=== PATIENT | female | born 1945 | race Hispanic/Latino ===

== ENCOUNTER 2016-08-10 22:30 | Emergency (ER) | payer MEDICARE ==
[2016-08-10 22:30] VITALS: BMI 28.9
[2016-08-10 22:49] VITALS: PULSE 74; RESP 20
--- NOTE | 2016-08-10 22:51 | C.PDOC ---
History Of Present Illness Patient is a 71 year old female who was brought into the ER by [facility] after patient twisted her right ankle. Patient states she was waiting for someone to assist her to the bathroom due to her left hip problems, but became restless and decided to go on her own when she slipped and twisted her right ankle. An x-ray was done [employer] and was positive for a right ankle fracture. Patient denies weakness, numbness, other injuries or trauma. Time Seen by Provider: 08/10/16 22:40 Chief Complaint (Nursing): Lower Extremity Problem/Injury History Per: Patient History/Exam Limitations: no limitations Onset/Duration Of Symptoms: Hrs Current Symptoms Are (Timing): Still Present Recent travel outside of the [place]: No Additional History Per: Patient, Longterm - Ankle/Foot Description Of Injury: Twisted Past Medical History Reviewed: Historical Data, Nursing Documentation, Vital Signs Vital Signs: Last Vital Signs Temp 98.3 F 08/10/16 22:37 Pulse 74 08/10/16 22:37 Resp 20 08/10/16 22:37 BP 157/89 H 08/10/16 22:37 Pulse Ox 99 08/10/16 22:37 - Medical History PMH: Asthma, HTN, Hypercholesterolemia, Hyperlipidemia, Hypothyroidism, Malignancy (breast ca mets) - [facility] Procedures COLONOSCOPY (07/16/14) DRAINAGE OF LEFT PLEURAL CAVITY, PERC APPROACH, DIAGN (12/13/15) ESOPHAGOGASTRODUODENOSCOPY [EGD] W/CLOSED BIOPSY (07/16/14) LAPAROSCOPIC CHOLECYSTECTOMY (07/16/14) RIGID PROCTOSIGMOIDOSCOPY (07/16/14) Family History: States: Unknown Family Hx - Social History Hx Tobacco Use: No Hx Alcohol Use: No Hx Substance Use: No - Immunization History Hx Tetanus Toxoid Vaccination: Yes Hx Influenza Vaccination: Yes Hx Pneumococcal Vaccination: Yes Review Of Systems Constitutional: Negative for: Fever, Chills, Weakness Musculoskeletal: Positive for: Foot Pain (Right ankle) Neurological: Negative for: Weakness, Numbness Physical Exam - Physical Exam Appears: Well, Non-toxic Skin: Normal Color, Warm, Dry, No Ecchymosis Head: Atraumatic, Normacephalic Oral Mucosa: Moist Extremity: Normal ROM, Tenderness (Right ankle over medial malleolus), Swelling (Right ankle), Other (Right knee sore. Left leg shortened and externally rotated.) Pulses: Left Femoral: Normal, Right Femoral: Normal, Left Dorsalis Pedis: Normal , Right Dorsalis Pedis: Normal Neurological/Psych: Oriented x3, Normal Speech, Normal Cognition ED Course And Treatment - Other Rad Right ankle X-Ray: Interpreted by Me Interpretation: Avulsion fracture off medial malleolus. Diffuse degenerative disease. soft tissue swelling right knee X-Ray: Interpreted by Me Interpretation: No evidence of fracture or dislocation. No effusion Pelvis X-Ray: Interpreted by Me Interpretation: Erosion of left femoral head. History of metastatic cancer Progress Note: Patient placed in an air cast to immobilize right ankle. Medical Decision Making Medical Decision Making: Plan: * X-ray of right hip, knee, and ankle Disposition - Disposition Disposition: TRANSF TO SNF Disposition Time: 23:54 Condition: IMPROVED Additional Instructions: Continue pain medications as prescribed. Keep the ankle iced and elevated. Wear the air cast for support for 6-8 weeks. Instructions: Ankle Fracture (ED) - Clinical Impression Clinical Impression: Closed avulsion fracture of medial malleolus - Scribe Statement The provider has reviewed the documentation as recorded by the Scribkeke Sandoval All medical record entries made by the Marisolibkeke were at my direction and personally dictated by me. I have reviewed the chart and agree that the record accurately reflects my personal performance of the history, physical exam, medical decision making, and the department course for this patient. I have also personally directed, reviewed, and agree with the discharge instructions and disposition.
[2016-08-11 00:45] VITALS: BP 132/78; TEMP 98; O2SAT 98
--- NOTE | 2016-08-11 08:20 | RAD ---
PROCEDURE: Right Knee Radiographs. HISTORY: injury COMPARISON: None. FINDINGS: BONES: No fracture. Tibial spine and posterior and anterior superior spurring present. Patellofemoral and medial femoral tibial joint space narrowing JOINTS: osteoarthritis. JOINT EFFUSION: None. OTHER FINDINGS: Quadriceps insertional enthesophyte IMPRESSION: No fracture or dislocation. Osteoarthrosis
--- NOTE | 2016-08-11 08:25 | RAD ---
PROCEDURE: Radiographs of the pelvis. HISTORY: injury COMPARISON: CT abdomen and pelvis 12/12/2015 report FINDINGS: BONES: Osseous hypertrophic changes -each lateral iliac bone and along each trochanter Deformity loss/flattening and fragmentation left femoral head -advanced avascular necrosis and osteoarthrosis inferred. Right osteoarthrosis JOINTS: Sacroiliac Joints: Left sacroiliac sclerosis possible superior right sacral sided sclerosis Pubic Symphysis: Unremarkable. Left L5-S1 ossific hypertrophic facet arthrosis Additional findings in bone section OTHER FINDINGS: None. IMPRESSION: Deformity/flattening/ osseous loss -left femoral head with fragmentation -left femoral head avascular necrosis inferred - findings reported 2015 Multifocal osteoarthrosis No interval obvious fracture appreciated
--- NOTE | 2016-08-11 08:37 | RAD ---
PROCEDURE: Right Ankle Radiographs. HISTORY: injury COMPARISON: None FINDINGS: BONES: Inferior medial malleolar osseous avulsion. Inferior posterior calcaneal spurring. Achilles tendon insertional enthesophyte noted. JOINTS: osteoarthritis 1st metatarsal-phalangeal joint most notable. Ankle mortise maintained. Talar dome intact SOFT TISSUES: Subcutaneous edema foot and lower leg OTHER FINDINGS: None. IMPRESSION: Inferior medial malleolar osseous avulsion 2 to 3 mm inferior displacement. No dislocation
== END 2016-08-11 00:46 ==
LOC: C.ER 22:30
DX: S82.51XA Displaced fracture of medial malleolus of right tibia, initial encounter for closed fracture (principal); X50.1XXA Overexertion from prolonged static or awkward postures, initial encounter; Y92.128 Other place in nursing home as the place of occurrence of the external cause